=== PATIENT | female | born 1935 | race Asian ===

== ENCOUNTER 2016-06-07 05:28 | Inpatient (IN) | payer OTHER ==
[~2016-06-07] VITALS: Ht 149.9 cm; Wt 54.6 kg
[~2016-06-07 05:28] MED LIST: ASPI-COR81 M3 PO; KEFLEX500 MG PO; LORAZEPAM0.5 MG PO; NORTRIPTYLINE H10 MG PO; PRAVACHOL10 MG PO; PRINIVIL10 MG PO; PROPRANOLOL HCL20 MG PO
[2016-06-07 06:38] LABS: BASOPHIL % 1.2 % (0-2); PLATELET COUNT 316 x10^3mcL (130-400)
[2016-06-07 06:53] LABS: CALCIUM 8.8 mg/dL (8.5-10.1); CARBON DIOXIDE 27.3 mmol/L (21-32); CHLORIDE SERUM 100 mmol/L (98-107); GLUCOSE SERUM 117 mg/dL (74-106); POTASSIUM SERUM 4.7 mmol/L (3.5-5.1); SODIUM SERUM 133 mmol/L (136-145)
[2016-06-07 06:57] LABS: RED CELL DISTRIBUTION WIDTH 14.6 % (11.5-14.5)
[2016-06-07 06:59] LABS: ALBUMIN 3.8 g/dL (3.4-5.0); ALKALINE PHOSPHATASE 60 U/L (46-116); ALT/SGPT 20 U/L (14-59); AMYLASE 86 U/L (25-115); AST/SGOT 19 U/L (15-37); BILIRUBIN TOTAL 0.44 mg/dL (0.20-1.00); CHOLESTEROL 184 mg/dL (<200); LIPASE 162 IU/L (73-393); TOTAL PROTEIN, SERUM 7.1 g/dL (6.4-8.2)
[2016-06-07 07:01] LABS: HDL CHOLESTEROL 87 mg/dL (40-60)
[2016-06-07] MEDS ORDERED: TOPROL XL25 MG PO (07:28)
[2016-06-07 07:53] LABS: microscopic required? YES; urine erythrocyte TRACE (NEGATIVE)
[2016-06-07 08:31] LABS: AMPHETAMINE QUAL UR NONE DETECTED (NEG <=1000)
[2016-06-07 08:40] LABS: PHOSPHOROUS 3.8 mg/dL (2.5-4.9)
[2016-06-07 08:41] LABS: CHOLESTEROL/HDL RATIO 2.2
[2016-06-07 08:51] LABS: T3 TOTAL 0.87 ng/mL
[2016-06-07 08:52] LABS: FREE T4 1.12 ng/dL (0.76-1.46); FREE THYROXINE INDEX 2.8 ug/dL (1.4-4.5); T4(THYROXINE) 8.1 ug/dL (4.7-13.3)
[2016-06-07 08:53] VITALS: BP 171/90
[2016-06-07 18:31] VITALS: BP 135/87
[2016-06-07 22:17] VITALS: BP 176/75
[2016-06-08] VITALS: BP 152/71
[2016-06-08 06:06] LABS: BASOPHIL % 1.1 % (0-2); PLATELET COUNT 264 x10^3mcL (130-400)
[2016-06-08 06:25] LABS: CALCIUM 8.2 mg/dL (8.5-10.1); CHLORIDE SERUM 104 mmol/L (98-107); CREATININE SERUM 0.8 mg/dL (0.6-1.0); GLUCOSE SERUM 105 mg/dL (74-106); MAGNESIUM 1.9 mg/dL (1.8-2.4); PHOSPHOROUS 3.6 mg/dL (2.5-4.9); POTASSIUM SERUM 4.3 mmol/L (3.5-5.1); SODIUM SERUM 134 mmol/L (136-145)
[2016-06-08 06:31] VITALS: BP 110/59
[2016-06-08 06:35] LABS: RED CELL DISTRIBUTION WIDTH 14.6 % (11.5-14.5)
[2016-06-08 08:50] VITALS: BP 135/59
[2016-06-08 13:12] VITALS: BP 135/59
[2016-06-08] MEDS ORDERED: PRILOSEC OTC20 M1 PO (13:13)
== END 2016-06-08 16:04 | disposition home or self-care (01) | DRG 392 ==
LOC: ED 05:28 → DU 07:30
PROVIDERS: Emergency Medicine; ADMIT Family Medicine
DX: K21.9 Gastro-esophageal reflux disease without esophagitis (principal); E87.1 Hypo-osmolality and hyponatremia; I42.9 Cardiomyopathy, unspecified; E11.65 Type 2 diabetes mellitus with hyperglycemia; I10 Essential (primary) hypertension; E78.5 Hyperlipidemia, unspecified; E11.51 Type 2 diabetes mellitus with diabetic peripheral angiopathy without gangrene; I45.10 Unspecified right bundle-branch block; F41.9 Anxiety disorder, unspecified; R31.9 Hematuria, unspecified; E78.00 Pure hypercholesterolemia, unspecified; E11.42 Type 2 diabetes mellitus with diabetic polyneuropathy; Z82.49 Family history of ischemic heart disease and other diseases of the circulatory system; Z79.82 Long term (current) use of aspirin; Z98.42 Cataract extraction status, left eye; Z98.41 Cataract extraction status, right eye; Z90.49 Acquired absence of other specified parts of digestive tract; Z90.710 Acquired absence of both cervix and uterus; Z79.899 Other long term (current) drug therapy
CPT/HCPCS: 80307; 82962; 83880; 84439; J7030; Q0092

== ENCOUNTER 2017-09-02 17:48 | Inpatient (IN) | payer OTHER ==
[~2017-09-02] VITALS: Ht 149.9 cm; Wt 55.8 kg
[~2017-09-02 17:48] MED LIST changes: +PRILOSEC OTC20 M1 PO; +TOPROL XL25 MG PO
[2017-09-02 19:05] LABS: BASOPHIL % 0.7 % (0-2); PLATELET COUNT 297 x10^3mcL (130-400); RED CELL DISTRIBUTION WIDTH 14.5 % (11.5-14.5)
[2017-09-02 19:15] LABS: CALCIUM 9.5 mg/dL (8.5-10.1); CARBON DIOXIDE 25.9 mmol/L (21-32); CHLORIDE SERUM 96 mmol/L (98-107); GLUCOSE SERUM 114 mg/dL (74-106); POTASSIUM SERUM 3.9 mmol/L (3.5-5.1); SODIUM SERUM 131 mmol/L (136-145)
[2017-09-02 19:20] LABS: ALBUMIN 3.8 g/dL (3.4-5.0); ALKALINE PHOSPHATASE 88 U/L (46-116); ALT/SGPT 18 U/L (14-59); AST/SGOT 23 U/L (15-37); BILIRUBIN TOTAL 0.41 mg/dL (0.20-1.00); TOTAL PROTEIN, SERUM 7.7 g/dL (6.4-8.2)
[2017-09-02] MEDS ORDERED: LISINOPRIL10 MG PO (19:55)
[2017-09-02] MEDS ORDERED: ASPIR LOW81 MG PO (19:56)
[2017-09-02] MEDS ORDERED: PRAVASTATIN SOD10 M1 PO (19:56)
[2017-09-02] MEDS ORDERED: NORTRIPTYLINE H10 M2 PO (19:56)
[2017-09-02] MEDS ORDERED: METOPROLOL TART25 M1 PO (19:57)
[2017-09-02] MEDS ORDERED: LORAZEPAM0.5 MG PO (19:58)
[2017-09-02 21:15] VITALS: BP 164/77
[2017-09-02 21:22] VITALS: Ht 149.9 cm; Wt 55.8 kg
[2017-09-02 21:57] LABS: MAGNESIUM 1.8 mg/dL (1.8-2.4); PHOSPHOROUS 3.8 mg/dL (2.5-4.9)
[2017-09-02 22:00] LABS: T3 TOTAL 0.87 ng/mL
[2017-09-02 22:10] LABS: FREE T4 0.96 ng/dL (0.76-1.46); FREE THYROXINE INDEX 2.4 ug/dL (1.4-4.5); T4(THYROXINE) 7.2 ug/dL (4.7-13.3)
[2017-09-02 22:14] LABS: CHOLESTEROL/HDL RATIO 2.4
[2017-09-02 22:23] LABS: microscopic required? YES; urine erythrocyte TRACE (NEGATIVE)
[2017-09-03] VITALS (7 sets, daily range): BP systolic 131–191; BP diastolic 51–72
[2017-09-03 05:42] LABS: BASOPHIL % 1.1 % (0-2); PLATELET COUNT 257 x10^3mcL (130-400)
[2017-09-03 05:58] LABS: CALCIUM 8.6 mg/dL (8.5-10.1); CARBON DIOXIDE 26.3 mmol/L (21-32); CHLORIDE SERUM 101 mmol/L (98-107); GLUCOSE SERUM 103 mg/dL (74-106); MAGNESIUM 1.8 mg/dL (1.8-2.4); PHOSPHOROUS 4.4 mg/dL (2.5-4.9); SODIUM SERUM 134 mmol/L (136-145)
[2017-09-04 05:23] VITALS: BP 123/53
[2017-09-04 05:43] LABS: CALCIUM 8.9 mg/dL (8.5-10.1); CARBON DIOXIDE 24.3 mmol/L (21-32); CHLORIDE SERUM 101 mmol/L (98-107); CREATININE SERUM 0.9 mg/dL (0.6-1.0); GLUCOSE SERUM 100 mg/dL (74-106); MAGNESIUM 1.6 mg/dL (1.8-2.4); POTASSIUM SERUM 3.9 mmol/L (3.5-5.1); SODIUM SERUM 134 mmol/L (136-145)
[2017-09-04 07:09] LABS: BASOPHIL % 0.9 % (0-2); PLATELET COUNT 278 x10^3mcL (130-400); RED CELL DISTRIBUTION WIDTH 14.3 % (11.5-14.5)
[2017-09-04 08:43] VITALS: BP 163/60
[2017-09-04 13:34] VITALS: BP 128/56
[2017-09-04] MEDS ORDERED: BACTRIM1 TAB PO (15:29)
[2017-09-04] MEDS ORDERED: LAC PO (15:30)
[2017-09-04 16:02] VITALS: BP 128/56
== END 2017-09-04 16:40 | disposition home or self-care (01) | DRG 391 ==
LOC: ED 17:48 → DU 19:58
PROVIDERS: Emergency Medicine; General Practice; Internal Medicine Pulmonary Disease
DX: K21.9 Gastro-esophageal reflux disease without esophagitis (principal); N17.0 Acute kidney failure with tubular necrosis; N39.0 Urinary tract infection, site not specified; E87.1 Hypo-osmolality and hyponatremia; I16.0 Hypertensive urgency; Z68.28 Body mass index [BMI] 28.0-28.9, adult; R00.1 Bradycardia, unspecified; E78.5 Hyperlipidemia, unspecified; E11.65 Type 2 diabetes mellitus with hyperglycemia; I45.10 Unspecified right bundle-branch block; I44.0 Atrioventricular block, first degree; E78.00 Pure hypercholesterolemia, unspecified; F41.1 Generalized anxiety disorder; E11.51 Type 2 diabetes mellitus with diabetic peripheral angiopathy without gangrene; E87.8 Other disorders of electrolyte and fluid balance, not elsewhere classified; E83.42 Hypomagnesemia; E11.40 Type 2 diabetes mellitus with diabetic neuropathy, unspecified; F32.9 Major depressive disorder, single episode, unspecified; Z53.29 Procedure and treatment not carried out because of patient's decision for other reasons; Z79.82 Long term (current) use of aspirin; Z79.899 Other long term (current) drug therapy; Z82.49 Family history of ischemic heart disease and other diseases of the circulatory system
CPT/HCPCS: 82962; 83880; 84439; 94150; J0696; J2270; J2405; J3490; J7030; Q0092

== ENCOUNTER 2018-05-28 05:31 | Observation (INO) | payer OTHER ==
[~2018-05-28] VITALS: Ht 149.9 cm; Wt 54.5 kg
[~2018-05-28 05:31] MED LIST changes: +ASPIR LOW81 MG PO; +BACTRIM1 TAB PO; +LAC PO; +LISINOPRIL10 MG PO; +METOPROLOL TART25 M1 PO; +NORTRIPTYLINE H10 M2 PO; +PRAVASTATIN SOD10 M1 PO
[2018-05-28 05:37] VITALS: Ht 149.9 cm; Wt 54.5 kg
[2018-05-28 07:13] LABS: UA SPECIFIC GRAVITY 1.015 (1.005-1.035); microscopic required? YES; urine erythrocyte TRACE (NEGATIVE)
[2018-05-28 07:30] LABS: BASOPHIL % 0.5 % (0-2); PLATELET COUNT 289 x10^3mcL (130-400)
[2018-05-28 07:38] LABS: RED CELL DISTRIBUTION WIDTH 14.7 % (11.5-14.5)
[2018-05-28 07:43] LABS: CALCIUM 8.6 mg/dL (8.5-10.1); CARBON DIOXIDE 24.7 mmol/L (21-32); CHLORIDE SERUM 99 mmol/L (98-107); GLUCOSE SERUM 141 mg/dL (74-106); POTASSIUM SERUM 4.4 mmol/L (3.5-5.1); SODIUM SERUM 132 mmol/L (136-145)
[2018-05-28 07:52] LABS: CK-MB 0.9 ng/mL (0-3.6); FREE T4 1.07 ng/dL (0.76-1.46); FREE THYROXINE INDEX 3.2 ug/dL (1.4-4.5); T4(THYROXINE) 8.8 ug/dL (4.7-13.3)
[2018-05-28 08:05] LABS: T3 TOTAL 0.92 ng/mL
[2018-05-28 08:07] LABS: ALBUMIN 3.5 g/dL (3.4-5.0); ALKALINE PHOSPHATASE 68 U/L (46-116); ALT/SGPT 15 U/L (14-59); AST/SGOT 21 U/L (15-37); BILIRUBIN TOTAL 0.4 mg/dL (0.20-1.00); C REACTIVE PROTEIN 0.2 mg/dL (<=0.9); TOTAL PROTEIN, SERUM 7.2 g/dL (6.4-8.2)
[2018-05-28 08:45] LABS: ERYTHROCYTE SED RATE 13 mm/hr (0-30)
[2018-05-28] MEDS ORDERED: AMLODIPINE BESY10 M2 PO (09:00)
[2018-05-28 10:29] VITALS: BP 152/67
[2018-05-28 21:12] VITALS: BP 161/58
[2018-05-29 06:10] VITALS: BP 135/56
[2018-05-29 06:24] LABS: BASOPHIL % 1.1 % (0-2); PLATELET COUNT 268 x10^3mcL (130-400)
[2018-05-29 06:46] LABS: CALCIUM 8.3 mg/dL (8.5-10.1); CARBON DIOXIDE 24.9 mmol/L (21-32); CHLORIDE SERUM 105 mmol/L (98-107); CREATININE SERUM 0.8 mg/dL (0.6-1.0); GLUCOSE SERUM 105 mg/dL (74-106); POTASSIUM SERUM 4.3 mmol/L (3.5-5.1); SODIUM SERUM 138 mmol/L (136-145)
[2018-05-29 08:04] VITALS: BP 158/62
[2018-05-29] MEDS ORDERED: KEFLEX500 M1 PO (09:55)
[2018-05-29 10:42] VITALS: BP 121/54
[2018-05-29 11:44] VITALS: BP 147/59
== END 2018-05-29 12:42 | disposition home or self-care (01) | DRG 690 ==
LOC: ED 05:31 → DU 09:05
PROVIDERS: Specialist; ADMIT Internal Medicine
DX: N39.0 Urinary tract infection, site not specified (principal); E87.1 Hypo-osmolality and hyponatremia; R00.1 Bradycardia, unspecified; I44.0 Atrioventricular block, first degree; R73.03 Prediabetes; I10 Essential (primary) hypertension; G62.9 Polyneuropathy, unspecified; F41.9 Anxiety disorder, unspecified; F32.9 Major depressive disorder, single episode, unspecified; E78.5 Hyperlipidemia, unspecified; Z68.23 Body mass index [BMI] 23.0-23.9, adult
CPT/HCPCS: 84439; 87804; G0378; J0696; J2405; J7030; J7040; Q0092